=== PATIENT | female | born 1955 | race Caucasian/White ===

== ENCOUNTER 2017-02-14 12:42 | Emergency (ER) | payer OTHER ==
[~2017-02-14] VITALS: Ht 165.1 cm; Wt 95.7 kg
[2017-02-14 12:42] VITALS: BP_SYST 136
[2017-02-14] MEDS ORDERED: IPRATROPIUM BROM 0.5 MG/2.5 ML VIAL.NEB (ATROVENT) INH ONE ×2 (12:50→13:00)
[2017-02-14] MEDS ORDERED: ALBUTEROL SULFATE 0.083% 2.5 MG/3 ML VIAL.NEB INH ONE ×2 (12:50→13:00)
[2017-02-14] MEDS ORDERED: LevALBUTEROL HCL 1.25 MG/0.5 ML *CONC.* VIAL.NEB (XOPENEX CONC.) INH ONE (13:45)
[2017-02-14] MEDS ORDERED: methylPREDNISolone SOD SUCC/PF 62.5 MG/ML VIAL IVP ONE (13:45)
[2017-02-14 15:47] VITALS: BP_SYST 124
== END 2017-02-14 16:49 | disposition home or self-care (01) ==
LOC: SED 12:42
DX: J45.901 Unspecified asthma with (acute) exacerbation (principal); R03.0 Elevated blood-pressure reading, without diagnosis of hypertension
CPT/HCPCS: 94640; 96374; 99284; J2930

== ENCOUNTER 2017-04-13 20:10 | Emergency (ER) | payer OTHER ==
[~2017-04-13] VITALS: Ht 170.2 cm; Wt 78.5 kg
[~2017-04-13 20:10] MED LIST: ALBMDI INH; FAMO20TA8; PRED10TA PO; PRED20TA PO
[2017-04-13 20:23] VITALS: BP_SYST 155
[2017-04-13] MEDS ORDERED: IPRATROPIUM BROM 0.5 MG/2.5 ML VIAL.NEB (ATROVENT) IH ONE (20:30)
[2017-04-13] MEDS ORDERED: ALBUTEROL SULFATE 0.083% 2.5 MG/3 ML VIAL.NEB IH ONE (20:30)
[2017-04-13] MEDS ORDERED: PREDNISONE 20 MG TABLET PO ONE (20:30)
[2017-04-13] MEDS ORDERED: IPRATROPIUM BROM 0.5 MG/2.5 ML VIAL.NEB (ATROVENT) INH ONE (20:34)
[2017-04-13] MEDS ORDERED: ALBUTEROL SULFATE 0.083% 2.5 MG/3 ML VIAL.NEB INH ONE (20:34)
[2017-04-13 22:22] VITALS: BP_SYST 139
== END 2017-04-13 22:22 | disposition home or self-care (01) ==
LOC: SED 20:10
DX: J45.909 Unspecified asthma, uncomplicated (principal)
CPT/HCPCS: 94640; 99284; J7512; 99283